=== PATIENT | male | born 1990 | race Caucasian/White ===

== ENCOUNTER 2022-08-28 16:19 | Emergency (ER) | payer OTHER, SELFPAY ==
[2022-08-28 16:20] VITALS: BP 146/96; PULSE 89; RESP 24; TEMP 35.9; O2SAT 97
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
[2022-08-28] MEDS: fentaNYL CITRATE INJ (*CRX) 100 MCG/2 ML VIAL IV PUSH (16:45)
[2022-08-28] MEDS: SILVER SULFADIAZINE 1% CR 50 GM JAR (*BKC) 1 APPLIC TOPICAL (16:46)
[2022-08-28] MEDS: TETANUS,DIPHTHERIA,AC PERTUSSIS ADULT 0.5 ML (ADACEL) IM (16:48)
[2022-08-28 16:53] VITALS: BP 151/100; PULSE 77; RESP 18; O2SAT 98
== END 2022-08-28 16:59 | disposition home or self-care (01) ==
PROVIDERS: Emergency Provider Emergency Medicine
DX: T22.212A Burn of second degree of left forearm, initial encounter (principal); T22.211A Burn of second degree of right forearm, initial encounter; T23.102A Burn of first degree of left hand, unspecified site, initial encounter; T23.101A Burn of first degree of right hand, unspecified site, initial encounter; X12.XXXA Contact with other hot fluids, initial encounter
CPT/HCPCS: 90471; 90715; 96374; 99284; A9270; J3010